=== PATIENT | male | born 1985 | race Caucasian/White ===

== ENCOUNTER 2018-07-26 09:14 | Emergency (ER) | payer OTHER ==
[~2018-07-26] VITALS: Ht 177.8 cm; Wt 86.2 kg
[~2018-07-26 09:14] MED LIST: NOHOMEMEDICATIONS
[2018-07-26 09:17] VITALS: BP 128/68
[2018-07-26] MEDS ORDERED: COLACE100 MG PO (09:25)
[2018-07-26] MEDS ORDERED: HYDROCORTISONE30 G9 RECTAL (09:25)
== END 2018-07-26 09:39 | disposition home or self-care (01) ==
LOC: ER 09:14
DX: K64.4 Residual hemorrhoidal skin tags (principal)